=== PATIENT | male | born 1970 | race Caucasian/White ===

== ENCOUNTER → 2016-06-15 | Day surgery (SDC) | payer BC ==
--- NOTE | 2016-06-13 06:08 | HP ---
PREOPERATIVE HISTORY AND PHYSICAL: DATE OF OFFICE VISIT: 06/09/16 DATE OF ADMISSION / SURGERY: 06/15/16 ATTENDING SURGEON: Niyah Aguilar MD PROCEDURE: Right shoulder arthroscopic rotator cuff repair, decompression, debridement, and possible subpectoral biceps tenodesis. CHIEF COMPLAINT: Right shoulder pain. HISTORY OF PRESENT ILLNESS: Mr. Whitehead is a 45-year-old man who presented to the clinic with ongoing right shoulder pain due to a rotator cuff tear. The patient has failed conservative measures and therefore has agreed to undergo a right shoulder arthroscopic rotator cuff repair with decompression, debridement , and possible subpectoral biceps tenodesis with Dr. Aguilar on 06/15/16. PAST MEDICAL HISTORY: 1. GERD. 2. Right labral tear. PAST SURGICAL HISTORY: 1. Labral repair, right shoulder. 2. Cholecystectomy. 3. Appendectomy. MEDICATIONS: No active medications. ALLERGIES: No known drug allergies. FAMILY HISTORY: None pertinent. SOCIAL HISTORY: Lives with his . Reports rare alcohol consumption. Denies smoking or illegal drug use. REVIEW OF SYSTEMS: A 14-point review of systems was reviewed with the patient. Positive for nausea and vomiting with anesthesia during his last surgery. Positive for headache. Positive for GERD. Otherwise, 14-point review of system was negative or non-pertinent. PHYSICAL EXAMINATION GENERAL: A well-developed, well-nourished 45-year-old male, in no acute distress. VITAL SIGNS: Height 68, weight 190, pulse 60, blood pressure 120/60, respiratory rate 16, and BMI 28.9. HEENT: Normocephalic, atraumatic. NECK: Supple. Throat clear. PULMONARY: Lungs clear to auscultation bilaterally. No wheezing, rhonchi, or rales. CARDIO: Regular rate and rhythm, S1, S2. No murmurs, gallops, or rubs. No edema. ABDOMEN: Positive bowel sounds, soft, and nontender. NEURO: Alert and oriented x3. Cranial nerves grossly intact. Sensation intact to light touch. MUSCULOSKELETAL: Right shoulder skin is intact with no obvious deformity. Forward flexion to 160 degrees. Abduction to 90 degrees. External rotation to 80 degrees. Internal rotation is to T8. supraspinatus testing. Positive Montiel- Tonny and Speed; +2 radial pulse. Neurovascularly intact. DIAGNOSTIC STUDIES/LAB DATA: MRI and MR arthrogram reveal a slap tear and partial inferior tearing of the supraspinatus tendon with fluid in the bicipital groove. IMPRESSION: Right shoulder rotator cuff tear. PLAN: The patient is scheduled to undergo a right shoulder arthroscopic rotator cuff repair, decompression, debridement, and possible subpectoral biceps tenodesis. He will return to the clinic in 10 to 14 days postop for a followup and suture removal. A prescription for Percocet was e-prescribed to the patient's pharmacy for postoperative pain management. TRACEE STARKS [id number]/[facility] #: [id number] DEREK
[~2016-06-15] MED LIST: Buffered Lidocaine 1% SYR 3ML* 3 ML/SYR SYRINGE INTRADERM ONE; Buffered Lidocaine 1% SYR 3ML* 3 ML/SYR SYRINGE ONE; Bupivacaine 0.25% SDV* 30 ML ONE; Dexamethasone IV* 4 MG/ML 1 ML (4 MG) ONE; Famotidine IV* 10 MG/ML 2 ML (20 mg) IV ONE; Famotidine IV* 10 MG/ML 2 ML (20 mg) ONE; Flumazenil* 0.1 MG/ML 5 ML MDV ONE; KETAMINE HCL* 50 MG/ML 10 ML VIAL ONE; Lidocaine 2% MPF* 2 ML VIAL ONE; Lidocaine 2% PF* 10 ML AMP ONE; Midazolam* 1 MG/ML 5 ML VIAL (5 MG) ONE; Morphine INJ* 2 MG/ML 1 ML CARPUJECT IV PRN; Ondansetron INJ* 2 MG/ML VIAL ONE; PROCHLORPERAZINE INJ 5 MG/ML 2 ML VIAL IV PRN; PROCHLORPERAZINE INJ 5 MG/ML 2 ML VIAL ONE; Propofol* 10 MG/ML 20 ML BTL IV PUSH ONE; Scopolamine 1.5 mg* PATCH ONE; ceFAZolin 2 GM PREMIX (*) 2 GM/50 ML BAG IVPB ONE; fentaNYL* 50 MCG/ML 2 ML VIAL (100 MCG VIAL) IV PRN; fentaNYL* 50 MCG/ML 2 ML VIAL (100 MCG VIAL) ONE; methylPREDNISolone ACETATE 80* 80 MG/ML 1 ML VIAL ONE; oxyCODONE/Acetamin 5/325 MG* TAB PO PRN
[2016-06-15 15:13] VITALS: BP 121/72
--- NOTE | 2016-06-16 00:38 | OP ---
DATE OF OPERATION: 06/15/16 [facility] DATE OF : 74 SURGEON: Niyah Aguilar MD LOFTSMAN/WOMAN: TRACEE Monetro. An assistant site manager was needed for the entirety of the case to help with positioning, retraction and was utilized throughout all portions of the case. ANESTHESIOLOGIST: Dr. Burnett. ANESTHESIA: General with interscalene block. PRE-OP DIAGNOSIS: Right shoulder impingement with possible rotator cuff tear and biceps tendonitis. POST-OP DIAGNOSIS: Right shoulder impingement and biceps tendonitis. OPERATIVE PROCEDURE: 1. Right shoulder arthroscopy with debridement and lysis of adhesions. 2. Subacromial decompression with acromioplasty. 3. Subpectoral biceps tenodesis. COMPLICATIONS: None. ESTIMATED BLOOD LOSS: Minimal. IMPLANTS: One Q-Fix anchor. INDICATIONS: Mike Whitehead is a 45-year-old male who has had persistent shoulder pain that began in August 2013. On and off he has had pain for that many years. He had previous surgery with Dr. Lombardo who did a posterior labral repair. He continued to have night pain, pain with moving his shoulder overhead and catching pain in the front of the shoulder. He has failed conservative management. He has elected to proceed with operative management. Risks and benefits were discussed in length and included but are not limited to bleeding, infection, damage to nerves, vessels, surrounding structures, wound nonhealing, persistent pain, need for further surgery, risk of anesthesia, risk of DVT. He has elected to proceed. DESCRIPTION OF PROCEDURE: The patient was greeted in the preoperative area by the attending surgeon and the correct extremity was marked and consent was confirmed. He then underwent interscalene block by the attending anesthesiologist. The patient was then brought back to the operative suite where he was placed in a supine position on the operating table. He was then placed in the left lateral decubitus position with an axillary roll. He then underwent general anesthesia with LMA intubation, which he tolerated without difficulty. Once the LMA was placed, the patient was supported with peg boards. All bony prominences were padded. The right arm was draped unsterile with about 10 pounds of traction, the right shoulder was prepped and draped in usual sterile fashion beginning with chlorhexidine soap, alcohol wipe and final prep of ChloraPrep. After appropriate surgical pause indicating site, side, procedure, and administration of antibiotics, standard posterolateral portal was made sharply with the 11 blade. Scope was introduced into the joint. The joint was examined. There was abundant scar tissue that was apparent in the joint, the biceps was subluxed. The superior labrum was torn with unstable fraying. The anterior labrum had unstable fraying. The glenoid had grade 0 to 1 changes. The humeral head had grade 0 to 1 changes. Posterior labrum repair was evident and sutures were somewhat prominent. Inferior recess was difficult to examine due to the scar. The anterior portal was then made in an outside-in fashion. The cannula was placed. The biceps was taken through range of motion and found to be quite diseased, therefore, was tenotomized. Shaver was brought into to debride the anterior, posterior, and superior labrum. The undersurface of the rotator cuff was in good condition. There was no obvious tearing. There was erythema of the supraspinatus tendon. The subscap was shielded behind a massive amount of scar. This was carefully debrided and the subscapularis was identified and found to be intact. Once the scar was released and all the debridement was complete, the attention was directed to the subacromial space. The scope was repositioned with subacromial spacers. There was abundant bursa present. The lateral portal was then made in an outside-in fashion and the shaver was used to debride the this back to a stable layer. The undersurface of the acromion was identified and there was downward sloping in the anterolateral spur that was identified. This was then skeletonized using the electrocautery device. Then an acromioplasty was done with a 4-0 oval jon. All loose debris was removed from that and attention was directed to the rotator cuff, which was carefully probed. The bursa that was abundant was removed in its entirety with care to preserve hemostasis. The CA ligament was peeled back and the cuff was examined and was found to be completely intact in the bursal side. Decision was made to leave it. The debridement was complete, an 18-gauge needle was placed in subacromial space for later placement of injection of Depo-Medrol. The bed was air planed to the right side. The anterior aspect of the shoulder was prepped again with ChloraPrep. A 15-blade was used to make an incision in line with the biceps tendon and encompassing the inferior two-thirds of the pectoralis tendon. The soft tissues were carefully dissected using the Metzenbaum scissors until the pec fascia was identified, then the pec was retracted superiorly. Remainder of the dissection was done bluntly. The bicipital groove was palpated. A small neck in the groove was then done and the biceps was retrieved to the wound. It was very inflamed and an image was taken. The biceps groove was then prepared in the usual fashion with the electrocautery device, the ball rasp and then the osteotome to create a good bony bleeding bed. The Q-Fix anchor was then used to drill unicortically. AQ- Fix anchor was deployed with good purchase. The sutures were then passed through the biceps tendon approximately 1 cm proximal to the musculotendinous junction. These were passed in a Carlos-Dave type configuration. Once the sutures were passed, the end of the biceps was sharply excised and removed and the biceps were shoveled back into the groove and then tied down with knots. The wounds were copiously irrigated. The probe sites were closed with 3-0 nylon. The anterior wound was closed in layers with 2-0 Vicryl and 3-0 Monocryl. Sterile dressings were applied. A 20 cc of 0.25% Marcaine were injected in the anterior wound. The subacromial space was injected with 80 mg of Depo-Medrol and 8 cc of Marcaine. Sterile dressings were applied, a Cryo/ Cuff as well as an UltraSling. He was awoken from anesthesia and transferred to the PACU in stable condition. POSTOPERATIVE PLAN: He will be nonweightbearing. He will be in a sling for approximately 4 weeks. He can come out to work on elbow, hand and wrist range of motion as well as pendulum exercises. He will be discharged on pain medications, antibiotics. DVT prophylaxis was considered, but deferred due to no previous personal or family history. I will see the patient back in 10 to 14 days. CC: PCP, Lizzette Millan MD * [id number]/[facility] #: [id number] DEREK
== END | disposition home or self-care (01) ==
LOC: OR 08:19
PROVIDERS: ATTEND Orthopaedic Surgery
DX: M75.41 Impingement syndrome of right shoulder (principal); M75.21 Bicipital tendinitis, right shoulder
CPT/HCPCS: A9270-GY; C1776; J0690; J0780; J1040; J1100; J2001; J2250; J2405; J2704; J3010

== ENCOUNTER 2017-11-05 22:06 | Emergency (ER) | payer BC ==
[2017-11-05] MEDS ORDERED: Ondansetron ODT TAB* 4 MG PO ONE (22:29)
[2017-11-05] MEDS ORDERED: Acetaminophen TAB* 325 MG PO ONE (22:31)
[2017-11-05] MEDS ORDERED: NS 0.9% 1000 ML* 1,000 ML IV ONE (22:39)
--- NOTE | 2017-11-05 22:43 | ED ---
HPI Febrile Illness - HPI Summary HPI Summary: Complains of fever up to 104.2, breathing feeling tight, body aches, WHITMORE, nausea , diarrhea multiple times, intermittent bilateral lower abdominal pain, cough starting today. Denies sore throat, CP, vomiting, change in urine. Medical history is none. Abdominal no/pelvic surgical history is appendectomy, cholecystectomy. Nonsmoker - History of Current Complaint Chief Complaint: EDFever Time Seen by Provider: 11/05/17 22:26 Hx Obtained From: Patient, Family/Hook Puller Pain Intensity: 6 - Allergy/Home Medications Allergies/Adverse Reactions: Allergies Allergy/AdvReac Type Severity Reaction Status Date / Time No Known Allergies Allergy Verified 11/05/17 22:12 PMH/Surg Hx/FS Hx/Imm Hx Endocrine/Hematology History: Denies: Hx Diabetes, Hx Thyroid Disease Cardiovascular History: Denies: Hx Hypercholesterolemia, Hx Hypertension, Hx Pacemaker/ICD, Hx Peripheral Vascular Disease History: Denies: Hx Renal Disease Musculoskeletal History: Denies: Hx Arthritis, Hx Osteoporosis Sensory History: Reports: Hx Contacts or Glasses - reading Denies: Hx Cataracts, Hx Glaucoma, Hx Hearing Aid Opthamlomology History: Reports: Hx Contacts or Glasses - reading Denies: Hx Cataracts, Hx Glaucoma Neurological History: Denies: Hx Headaches, Hx Seizures, Hx Transient Ischemic Attacks (TIA) Psychiatric History: Denies: Hx Anxiety, Hx Depression, Hx Panic Disorder - Surgical History Surgery Procedure, Year, and Place: APPENDECTOMY, GALLBLADDER. RIGHT SHOULDER SURGERY 08/22/14 Hx Anesthesia Reactions: Yes - with shoulder surgery hard time coming out of anesthesia Infectious Disease History: No Infectious Disease History: Denies: Traveled Outside the [place] in Last 30 Days - Social History Alcohol Use: Occasionally Hx Substance Use: No Substance Use Type: Reports: None Hx Tobacco Use: No Smoking Status (MU): Never Smoked Tobacco Review of Systems Positive: Fever Eyes: Negative ENT: Negative Cardiovascular: Negative Positive: Shortness Of Breath, Cough Positive: Abdominal Pain, Diarrhea, Nausea Genitourinary: Negative Positive: Myalgia Skin: Negative Positive: Headache Psychological: Normal All Other Systems Reviewed And Are Negative: Yes Physical Exam - Summary Physical Exam Summary: No peripheral edema. Abdomen most tender right lower quadrant, but diffusely tender across lower abdomen. Negative Kernig's, negative Brudzinski. Tenderness to left paraspinal muscles along C-spine. Triage Information Reviewed: Yes Vital Signs On Initial Exam: Initial Vitals Temp Pulse Resp BP Pulse Ox 100.3 F 87 18 108/60 99 11/05/17 22:10 11/05/17 22:10 11/05/17 22:10 11/05/17 22:10 11/05/17 22:10 Vital Signs Reviewed: Yes Appearance: Positive: Well-Appearing Skin: Positive: Warm Head/Face: Positive: Normal Head/Face Inspection Eyes: Positive: Normal Neck: Positive: Supple Respiratory/Lung Sounds: Positive: Clear to Auscultation Cardiovascular: Positive: Normal Abdomen Description: Positive: Nontender Musculoskeletal: Positive: Normal Neurological: Positive: Normal Psychiatric: Positive: Normal AVPU Assessment: Alert - Jessy Coma Scale Best Eye Response: 4 - Spontaneous Best Motor Response: 6 - Obeys Commands Best Verbal Response: 5 - Oriented Coma Scale Total: 15 Diagnostics - Vital Signs Vital Signs Temp Pulse Resp BP Pulse Ox 11/05/17 22:10 100.3 F 87 18 108/60 99 - Laboratory Result Diagrams: 11/05/17 22:54 11/05/17 22:54 Lab Statement: Any lab studies that have been ordered have been reviewed, and results considered in the medical decision making process. - Radiology cxr Xray Interpretation: No Acute Changes Radiology Interpretation Completed By: ED Physician Course/Dx - Course Course Of Treatment: Complains of fever up to 104.2, breathing feeling tight, body aches, WHITMORE, nausea, diarrhea multiple times, intermittent bilateral lower abdominal pain, cough starting today. Denies sore throat, CP, vomiting, change in urine. Medical history is none. Abdominal no/pelvic surgical history is appendectomy, cholecystectomy. Nonsmoker. No peripheral edema. Abdomen most tender right lower quadrant, but diffusely tender across lower abdomen. Negative Kernig's, negative Brudzinski. Tenderness to left paraspinal muscles along C-spine. Vital signs within normal limits and stable. Elevated white count, but labs otherwise unremarkable. Does not meet sepsis criteria. Rx for Zofran, Bentyl. Tylenol and ibuprofen for fever control. - Diagnoses Provider Diagnoses: Diarrhea, Fever, Flu-like symptoms Discharge - Sign-Out/Discharge Documenting (check all that apply): Discharge/Admit/Transfer - Discharge Plan Condition: Stable Disposition: HOME Patient Education Materials: Acute Diarrhea (ED) Referrals: O'Bonnie,[place], [place] [Primary Care Provider] - - Billing Disposition and Condition Condition: STABLE Disposition: HOME
[2017-11-05 23:00] LABS: ABS Basophils 0.1 10^3/ul (0-0.2); ABS Eosinophils 0 10^3/ul (0-0.6); ABS Lymphocytes 0.9 10^3/ul (1.0-4.8); ABS Monocytes 0.9 10^3/ul (0-0.8); ABS Neutrophils 10.3 10^3/ul (1.5-7.7); ABS Nucleated RBC 0 10^3/ul; Eosinophil % 0.1 % (0-6); Hematocrit 39 % (42-52); Hemoglobin 13.3 g/dl (14.0-18.0); Lymphocyte % 7.1 % (25-47); Mean Corpuscular HGB Conc 34 g/dl (31-36); Mean Corpuscular Hemoglobin 29 pg (27-31); Mean Corpuscular Volume 86 fL (80-94); Mean Platelet Volume 8.1 um3 (7.4-10.4); Nucleated Red Blood Cells % 0; Platelet Count 174 10^3/ul (150-450); Red Blood Count 4.53 10^6/ul (4.0-5.4); Red Cell Distribution Width 14 % (10.5-15); White Blood Count 12.1 10^3/ul (3.5-10.8)
[2017-11-05 23:20] LABS: EGFR Non-African American 75.5 (>60)
[2017-11-06] MEDS ORDERED: Dicyclomine CAP* 10 MG PO ONE (01:00)
[2017-11-06] MEDS ORDERED: Ciprofloxacin TAB* 250 MG PO ONE (01:00)
[2017-11-06 02:03] VITALS: BP 107/50
--- NOTE | 2017-11-06 07:55 | RAD ---
HISTORY: Shortness of breath, fever COMPARISONS: November 24, 2004 VIEWS: 4: Frontal dual-energy and lateral views of the chest. FINDINGS: CARDIOMEDIASTINAL SILHOUETTE: The cardiomediastinal silhouette is normal. ADITYA: The aditya are normal. PLEURA: The costophrenic angles are sharp. No pleural abnormalities are noted. LUNG PARENCHYMA: The lungs are clear. ABDOMEN: The upper abdomen is clear. There is no subphrenic gas. BONES AND SOFT TISSUES: Mild degenerative changes are noted. OTHER: None. IMPRESSION: NO ACTIVE CARDIOPULMONARY DISEASE.
== END 2017-11-06 02:03 | disposition home or self-care (01) ==
LOC: ED 22:07
DX: J11.1 Influenza due to unidentified influenza virus with other respiratory manifestations (principal); R50.9 Fever, unspecified; R19.7 Diarrhea, unspecified; R10.30 Lower abdominal pain, unspecified; R06.02 Shortness of breath; Z90.89 Acquired absence of other organs; Z90.49 Acquired absence of other specified parts of digestive tract
CPT/HCPCS: 36415; 71046; 80053; 83605; 83690; 85025; 86140; 86618; 86666; 86753; 87502; 96360; 99283; A9270-GY